=== PATIENT | female | born 1955 ===

== ENCOUNTER 2017-02-09 03:28 | Emergency (ER) | payer OTHER ==
[2017-02-09 03:44] VITALS: TEMP 98.1; O2SAT 96
[2017-02-09] MEDS ORDERED: Oxycodone/Acetaminophen 5/325 mg Tab PO STA (04:00)
--- NOTE | 2017-02-09 04:03 | ED PDOC ---
Arrival/HPI - General Chief Complaint: Lower Extremity Problem/Injury Time Seen by Provider: 02/09/17 03:43 Historian: Patient - History of Present Illness Narrative History of Present Illness (Text): 02/09/17 03:59 A 62 year old female with no known past medical history, presents to the emergency department complaining of left foot arch pain. The patient states that she had been experiencing discomfort in the left arch of the foot for a few days. Today when she laid her foot flat on the floor getting back to bed, she felt a lot of pain in the arch of the foot. She describes the pain as a tearing sensation when she flattens her foot to support her weight and walk. The patient denies use of heels, fevers, chills, headache, dizziness, chest pain , shortness of breath, dyspnea on exertion, cough, abdominal pain, nausea, vomiting, diarrhea, back pain, neck pain, urinary/bowel changes, or any other complaint. Time/Duration: Other (Today) Symptom Onset: Sudden Symptom Course: Unchanged Activities at Onset: Rest, Light Context: Home Past Medical History - Provider Review Nursing Documentation Reviewed: Yes - Reproductive Menopause: Yes - Cardiac Hx Hypertension: Yes - Pulmonary Hx Respiratory Disorders: No - Neurological Hx Neurological Disorder: No - HEENT Hx HEENT Disorder: No - Renal Hx Renal Disorder: No - Endocrine/Metabolic Hx Endocrine Disorders: No - Hematological/Oncological Hx Blood Disorders: No - Integumentary Hx Dermatological Disorder: No - Musculoskeletal/Rheumatological Hx Arthritis: Yes - Gastrointestinal Hx Gastrointestinal Disorders: No - Genitourinary/Gynecological Hx Genitourinary Disorders: No - Psychiatric Hx Psychophysiologic Disorder: No Hx Substance Use: No - Surgical History Hx Orthopedic Surgery: Yes (pratibha knee) Family/Social History - Physician Review Nursing Documentation Reviewed: Yes Family/Social History: No Known Family HX Smoking Status: Never Smoked Hx Alcohol Use: No Hx Substance Use: No Allergies/Home Meds Allergies/Adverse Reactions: Allergies No Known Allergies Allergy (Verified 09/28/16 16:41) Home Medications: Home Meds Medication Instructions Recorded Confirmed Alprazolam [Xanax] 2 mg PO PRN PRN 09/28/16 09/28/16 Metoprolol Succinate [Toprol XL] 50 mg PO BID 09/28/16 09/28/16 oxyCODONE [oxyCODONE Immediate 30 mg PO BID 09/28/16 09/28/16 Release Tab] Lidocaine 1 each TP Q12 02/09/17 02/09/17 Review of Systems - Physician Review All systems were reviewed & negative as marked: Yes - Review of Systems Constitutional: absent: Fevers Respiratory: absent: SOB, Cough Cardiovascular: absent: Chest Pain Gastrointestinal: absent: Abdominal Pain, Diarrhea, Nausea, Vomiting Musculoskeletal: Other (Arch of left foot pain.). absent: Back Pain, Neck Pain Neurological: absent: Headache, Dizziness Physical Exam Vital Signs Reviewed: Yes Vital Signs Temp Pulse Resp BP Pulse Ox 02/09/17 06:15 71 17 141/74 96 02/09/17 05:09 67 17 135/67 96 02/09/17 03:56 98.1 F 74 18 165/86 H 96 02/09/17 03:39 98.1 F 74 18 165/86 H 96 Temperature: Afebrile Blood Pressure: Normal Pulse: Regular Respiratory Rate: Normal Appearance: Positive for: Well-Appearing, Non-Toxic, Comfortable, Other ( Patient is morbidly obese.) Pain Distress: None Mental Status: Positive for: Alert and Oriented X 3 - Systems Exam Head: Present: Atraumatic, Normocephalic Pupils: Present: PERRL Extroacular Muscles: Present: EOMI Conjunctiva: Present: Normal Mouth: Present: Moist Mucous Membranes Nose (Internal): Present: Normal Inspection, No Active Bleeding, Moist, Engorged , Edematous, Boggy, Clear Mucous, Rhinorrhea, Purulent Mucous, Septal Deviation , Septal Hematoma, Epistaxis, Other Neck: Present: Normal Range of Motion Respiratory/Chest: Present: Clear to Auscultation, Good Air Exchange. No: Respiratory Distress, Accessory Muscle Use Cardiovascular: Present: Regular Rate and Rhythm, Normal S1, S2. No: Murmurs Abdomen: Present: Normal Bowel Sounds. No: Tenderness, Distention, Peritoneal Signs Back: Present: Normal Inspection Upper Extremity: Present: Normal Inspection. No: Cyanosis, Edema Lower Extremity: Present: Tenderness (Tender diffusely along the plantar aspect of the left foot. ). No: Erythema, Deformity, Other (No effusion.) Neurological: Present: GCS=15, CN II-XII Intact, Speech Normal Skin: Present: Warm, Dry, Normal Color. No: Rashes Psychiatric: Present: Alert, Oriented x 3, Normal Insight, Normal Concentration Medical Decision Making ED Course and Treatment: 02/09/17 04:07 Impression: A 62 year old female presents to the emergency department complaining of pain to the plantar aspect of the left foot. Differential Diagnosis included but are not limited to: Plantar Fasciitis Plan: -- Left Foot X-Ray -- Percocet -- Reassess and disposition Progress Notes: 02/09/17 04:09: Will order X-Ray of the left foot. If X-Ray is negative, will prescribe anti- inflammatory medication, show inserts, and cold compresses. 02/09/17 04:52: Left Foot X-Ray- Read and interpreted by me reveal bone spurs to the calcaneus, but there are no acute fractures. - RAD Interpretation Radiology Orders: 02/09/17 04:00 FOOT LEFT 3 VIEWS ROUTINE [RAD] Stat - Medication Orders Current Medication Orders: Discontinued Medications Oxycodone/Acetaminophen (Percocet 5/325 Mg Tab) 1 tab PO STAT STA Stop: 02/09/17 04:01 Last Admin: 02/09/17 04:18 Dose: 1 tab MAR Pain Assessment Document 02/09/17 04:18 IT (Rec: 02/09/17 04:18 IT [id number]) Pain Reassessment Is this a pain reassessment? No Sleep Is patient sleeping during reassessment? No Presence of Pain Presence of Pain Yes Pain Scale Used Pain Scale Used Numeric Location Left, Right or Bilateral Left Pain Location Body Site Foot Description Description Intermittent - Scribe Statement The provider has reviewed the documentation as recorded by the [facility] Provider Scribe Attestation: All medical record entries made by the Scribe were at my direction and personally dictated by me. I have reviewed the chart and agree that the record accurately reflects my personal performance of the history, physical exam, medical decision making, and the department course for this patient. I have also personally directed, reviewed, and agree with the discharge instructions and disposition. Disposition/Present on Arrival - Present on Arrival Any Indicators Present on Arrival: No History of DVT/PE: No History of Uncontrolled Diabetes: No Urinary Catheter: No History of Decub. Ulcer: No History Surgical Site Infection Following: None - Disposition Have Diagnosis and Disposition been Completed?: Yes Diagnosis: Plantar fasciitis Disposition: HOME/ ROUTINE Disposition Time: 19:01 Patient Plan: Discharge Condition: GOOD Discharge Instructions (ExitCare): Plantar Fasciitis (ED) Print Language: GREENLANDIC Additional Instructions: aPPLY ICE PACKS TO BOTTOM OF FOOT.sUGGEST SHOE INSERTS FOR ARCH SUPPORT Prescriptions: Naproxen [Naprosyn] 500 mg PO BID #20 tablet Forms: [email or web address] (Armenian)
[2017-02-09 05:09] VITALS: RESP 17
[2017-02-09 06:16] VITALS: BP 141/74; PULSE 71
--- NOTE | 2017-02-09 07:31 | RAD ---
PROCEDURE: Left Foot Radiographs. HISTORY: pain COMPARISON: None. FINDINGS: BONES: Normal. No fracture. JOINTS: Mild degenerative changes in the midfoot. SOFT TISSUES: Normal. OTHER FINDINGS: None. IMPRESSION: No acute findings
== END 2017-02-09 08:10 | disposition home or self-care (01) ==
LOC: MERGE 03:28 → ED 03:28
DX: M72.2 Plantar fascial fibromatosis (principal)